=== PATIENT | female | born 1995 | race Caucasian/White ===

== ENCOUNTER 2016-12-20 14:33 | Emergency (ER) | payer OTHER ==
[2016-12-20 14:46] VITALS: BP 142/73
[2016-12-20] MEDS ORDERED: BOOSTRIX VACCINE IM ONE (14:57)
--- NOTE | 2016-12-20 15:03 | PROVIDER DOCUMENTATION ---
HPI-Animal/Snake Bite Injury - General Patient arrived via EMS?: No Source: patient - History of Present Illness-Bite Injuries Onset/Duration: just prior to arrival Timing: reports: still present Locality of Occurance: Work Severity: mild Quality: painful Loss of Consciousness: no loss of consciousness Remembers:: injury, coming to hospital Similar Symptoms Previously?: No Recently seen or treated by another doctor?: No - Animal Bite Bite Injury Location: reports: hands Animal:: reports: family pet Appearance of Animal: appeared well Animal's Immunization Status: unknown Severity of Bite Injury: bitten <Ronda Mendez - Last Filed: 12/20/16 15:12> <Vera Chavez - Last Filed: 12/20/16 15:28> - General Chief Complaint: Animal Bite Stated Complaint: WORK RELATED INJURY Time Seen by Provider: 12/20/16 14:54 Allergies/Adverse Reactions: Patient Allergies Allergy/AdvReac Type Severity Reaction Status Date / Time hydrocodone [Hydrocodone] Allergy Mild RASH Verified 12/20/16 14:46 meperidine HCl * Allergy Mild RASH Verified 12/20/16 14:46 [From Demerol] Home Medications: Home Medication List Medication Instructions Recorded Confirmed Last Taken Type Amoxicillin/Pot Clavulanate 875 mg PO Q12HR #20 tablet 12/20/16 Unknown Rx [Augmentin] - History of Present Illness-Bite Injuries Nature of Presenting Problem: 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 Full range of motion. (Ronda Mendez) Review of Systems - Adult - REVIEW OF SYSTEMS - ADULT Constitutional: denies: chills, fever, fatique Eyes: reports: no symptoms reported Ears, Nose, Mouth & Throat: reports: no symptoms reported Cardiovascular: denies: chest pain, irregular heart rate, orthopnea Respiratory: reports: no symptoms reported Gastrointestinal: reports: no symptoms reported Genitourinary: reports: no symptoms reported Musculoskeletal: reports: no symptoms reported Integumentary: reports: see HPI. denies: mole changes, nail changes, skin thickening Neurological: reports: no symptoms reported Psychiatric: reports: no symptoms reported Endocrine: reports: no symptoms reported Hematologic/Lymphatic: reports: no symptoms reported Allergic/Immunologic: reports: no symptoms reported All Other Systems: Reviewed and Negative <Ronda Mendez - Last Filed: 12/20/16 15:12> Past History - Adult - PAST MEDICAL HISTORY-ADULT Review of Records: reports: Nursing Assessment Review Major Childhood Illnesses: reports: denies history Cardiovascular: reports: denies history Respiratory: reports: asthma - PRIOR SURGERIES/PROCEDURES Surgical/Procedure History: reports: cholecystectomy, tonsillectomy, orthopedic (extremity) - IMMUNIZATION STATUS Childhood Immunizations: See Nurse Assessment Flu Vaccine: See Nurse Assessment - SOCIAL HISTORY Smoking: denies Substance Use: none/never <Ronda Mendez - Last Filed: 12/20/16 15:12> - PAST MEDICAL HISTORY-ADULT Major Childhood Illnesses: reports: denies history Cardiovascular: reports: denies history Respiratory: reports: asthma Gastrointestinal: reports: denies history Obstetrical/Gynecological: reports: denies history Genitourinary: reports: denies history Musculoskeletal: reports: denies history Neurological: reports: denies history Psychiatric: reports: anxiety Endocrine/Immune: reports: denies history Other Conditions: reports: acne, skin disorder (abscesses) - PRIOR SURGERIES/PROCEDURES Surgical/Procedure History: reports: cholecystectomy, tonsillectomy, joint replacement (R shoulder ) - IMMUNIZATION STATUS Childhood Immunizations: See Nurse Assessment Flu Vaccine: See Nurse Assessment - FAMILY HISTORY Family History: reviewed, not pertinent <Vera Chavez M. - Last Filed: 12/20/16 15:28> Physical Exam-General - PHYSICAL EXAM-ADULT Initial Vital Signs Reviewed: Yes - CONSTITUTIONAL General Appearance: appears well, alert, no apparent distress - EYES Eyes: PERRL/EOMI, pink conjunctivae - HEAD, EARS, NOSE, MOUTH & THROAT HENMT: normocephalic/atraumatic, moist mucous membranes - NECK Neck: non-tender, full range of motion, supple - RESPIRATORY Respiratory: chest non-tender, lungs clear, normal breath sounds - CARDIOVASCULAR Cardiovascular: regular rate, rhythm, no edema - MUSCULOSKELETAL Back Exam: normal inspection Extremity: normal gait - SKIN Integumentary: other (shallow abrasion to left thenar eminence) - NEUROLOGIC Neurologic: grossly normal, no motor/sensory deficits - PSYCHIATRIC Psych/Mental Status: normal thought content, normal thought process, anxious <Maria T Chavezcy M. - Last Filed: 12/20/16 15:28> Progress <Ronda Mendez - Last Filed: 12/20/16 15:12> <Vera Chavez - Last Filed: 12/20/16 15:28> - PLAN OF CARE/RESULTS Progress/Plan/Lab Results: Orders Category Date Time Status Diph,Pertuss(Acell),Tet Vac/Pf [Boostrix Vaccine] Med 12/20/16 14:57 Discontinued 0.5 ml IM .ONCE ONE Vital Signs - 24 hr 12/20/16 14:41 Temperature 98.9 F Pulse Rate 83 Respiratory 20 Rate Blood Pressure 142/73 O2 Sat by Pulse 96 Oximetry (Ronda Mendez) Vital Signs Temp Pulse Resp BP Pulse Ox 12/20/16 14:41 98.9 F 83 20 142/73 96 hydrocodone [Hydrocodone] Allergy (Mild, Verified 12/20/16 14:46) RASH meperidine HCl * [From Demerol] Allergy (Mild, Verified 12/20/16 14:46) RASH No Home Medications 12/20/16 Orders Category Date Time Status Diph,Pertuss(Acell),Tet Vac/Pf [Boostrix Vaccine] Med 12/20/16 14:57 Discontinued 0.5 ml IM .ONCE ONE (eVra Chavez) Departure <Ronda Mendez - Last Filed: 12/20/16 15:12> - Departure Time of Disposition Order: 15:26 Certified Medical Emergency: Emergent <Vera Chavez - Last Filed: 12/20/16 15:28> - Departure DIAGNOSIS: Dog bite Qualifiers: Encounter type: initial encounter Qualified Code(s): W54.0XXA - Bitten by dog, initial encounter Disposition: HOME 01 Condition: Good Additional Instructions: ED Follow Up Instructions: You have been treated by a care provider in the Emergency Department. These instructions are being provided to you so you can have an understanding of how to care for yourself upon discharge. Upon discharge from the Emergency Department, you are responsible for making arrangements for follow-up care by a physician of your choice. Take all prescribed medications as directed. Return to the Emergency Department immediately for any new or worsening symptoms. You may call the Physician Referral phone number at [phone] to obtain a list of Physicians who are taking new patients. Prescriptions: Amoxicillin/Pot Clavulanate [Augmentin] 875 mg PO Q12HR #20 tablet Referrals: None,PCP [Primary Care Provider] - Isac Truong MD [STAFF PHYSICIAN] - Attestation - Scribe Verification/Attestation Scribe:: Ronda Mendez Acting as Scribe for:: Vera Chavez Scribe documention review:: This chart was documented by a scribe and accurately reflects the service the provider performed and the decisions made by the provider. <Ronda Mendez - Last Filed: 12/20/16 15:12> - Physician/ ARIANNA Attestation Patient care was provided by Advanced Practice Provider:: Yes Advanced Practice Provider:: Vera Chavez Advanced Practice Provider documentation review:: The Mid-level provider documentation, treatment plan and medical decision making was reviewed by the physician who agrees with all treatment and medical decision making by the MLP. <Vera Chavez - Last Filed: 12/20/16 15:28> Physician Attestation
== END 2016-12-20 15:40 | disposition home or self-care (01) ==
LOC: P.ED 14:33
DX: S60.512A Abrasion of left hand, initial encounter (principal); Z23 Encounter for immunization; Z96.611 Presence of right artificial shoulder joint; W54.0XXA Bitten by dog, initial encounter
CPT/HCPCS: 90471; 90715